=== PATIENT | male | born 1980 | race Caucasian/White ===

== ENCOUNTER → 2016-11-04 | Outpatient (REF) | payer OTHER ==
[2016-11-04 13:47] LABS: % NORMAL FORMS 14 % (>=4); IMMOTILITY 30 %; NON PROGRESSIVE MOTILITY (c) 15 %; PROGRESSIVE MOTILITY (a) 55 % (>=32); TOTAL FUNCTIONAL 12.5 M/Ejac.; TOTAL MOTILITY 70 % (>=40); TOTAL PROGRESSIVE SPERM 41.8 M/Ejac.
== END ==
LOC: M LAB REF 12:01
PROVIDERS: ATTEND Physician Assistant Surgical
DX: N46.9 Male infertility, unspecified (principal)

== ENCOUNTER 2016-11-12 09:09 | Emergency (ER) | payer OTHER ==
[~2016-11-12] VITALS: Ht 182.9 cm; Wt 107.6 kg
[2016-11-12 09:10] VITALS: BP 152/84
[2016-11-12] MEDS ORDERED: LIDOCAINE W/EPINEPHRINE 1% 20ML VIAL As Ordered ONE (09:59)
[2016-11-12] MEDS ORDERED: DERMABOND TOPICAL SKIN ADHESIVE TOP ONE (10:00)
[2016-11-12] MEDS ORDERED: LIDOCAINE W/EPINEPHRINE 1% 20ML VIAL SC ONE (10:00)
[2016-11-12] MEDS ORDERED: LIDOCAINE 1% MDV 20ML VIAL As Ordered ONE (10:01)
[2016-11-12] MEDS ORDERED: LIDOCAINE 1% MDV 20ML VIAL SC ONE (11:15)
== END 2016-11-12 11:02 | disposition home or self-care (01) ==
LOC: M ED 10:51
DX: S61.216A Laceration without foreign body of right little finger without damage to nail, initial encounter (principal); W26.8XXA Contact with other sharp object(s), not elsewhere classified, initial encounter; Y92.099 Unspecified place in other non-institutional residence as the place of occurrence of the external cause; Y93.G1 Activity, food preparation and clean up; Y99.9 Unspecified external cause status

== ENCOUNTER → 2016-11-21 | Outpatient (REF) | payer OTHER ==
[2016-11-21 14:03] LABS: % NORMAL FORMS 19 % (>=4); IMMOTILITY 18 %; NON PROGRESSIVE MOTILITY (c) 15 %; PROGRESSIVE MOTILITY (a) 67 % (>=32); SPERM# 135.9 M/Ejac (33-46); TOTAL FUNCTIONAL 34.5 M/Ejac.; TOTAL MOTILITY 82 % (>=40); TOTAL PROGRESSIVE SPERM 91.5 M/Ejac.
== END ==
LOC: M LAB REF 13:25
PROVIDERS: ATTEND Physician Assistant Surgical
DX: N46.9 Male infertility, unspecified (principal)